=== PATIENT | male | born 1960 | race Caucasian/White ===

== ENCOUNTER 2018-03-01 23:39 | Emergency (ER) | payer OTHER ==
[2018-03-01 23:56] VITALS: BP 111/79; TEMP 98.2; BMI 36.4
[2018-03-02] MEDS ORDERED: BOOSTRIX IM ONE (00:09)
[2018-03-02] MEDS ORDERED: KEFLEX PO STA (00:09)
--- NOTE | 2018-03-02 00:14 | ED.PDOC ---
General ED Provider: Dr. BING COSTELLO Chief Complaint: Bite Stated Complaint: Dog had something in his mouth when he went to get it he was bit on left 5th finger by a mouse that the dog was holdin. He staets that he cleansed area with soap/water. Tetnus is not up to date. Time Seen by Physician: 00:14 Mode of Arrival: Walk-In Information Source: Patient Exam Limitations: No limitations Primary Care Provider: SUZAN OSULLIVAN Nursing and Triage Documentation Reviewed and Agree: Yes Reviewed sepsis parameters & appropriate labs ordered?: No System Inflammatory Response Syndrome: Not Applicable Sepsis Protocol: For patient's 13 years and over: Temp is 96.8 and below OR 101 and greater Pulse >90 BPM Resp >20/minute Acutely Altered Mental Status Are patient's symptoms suggestive of a new infection, such as: -Pneumonia -Skin, Soft Tissue -Endocarditis -UTI -Bone, Joint Infection -Implantable Device -Acute Abdominal Infection -Wound Infection -Meningitis -Blood Stream Catheter Infection -Unknown System Inflammatory Response Syndrome: Not Applicable Skin Complaint Exam - Laceration/Abrasion/Hand Complaint/Exam Location of Injury: Left, Digit #5 Mechanism of Injury: Laceration, Abrasion Onset/Duration: just prior to arrival. Symptoms Are: Still present Initial Severity: Severe Current Severity: Mild Aggravating: None Associated Signs and Symptoms: Denies: Fever, Chills, Erythema, Numbness, Tingling Related History: Reports: Right hand dominant Hand Picture: 1 - Abrasion measuring 0.5 cm Differential Diagnoses: Abrasion Review of Systems - Review Of Systems Constitutional: Reports: No symptoms Eyes: Reports: No symptoms Ears, Nose, Mouth, Throat: Reports: No symptoms Respiratory: Reports: No symptoms Cardiac: Reports: No symptoms GI: Reports: No symptoms : Reports: No symptoms Musculoskeletal: Reports: Joint pain Skin: Reports: Bruising Neurological: Reports: No symptoms Endocrine: Reports: No symptoms Hematologic/Lymphatic: Reports: No symptoms All Other Systems: Reviewed and Negative Past Medical History - Past Medical History Previously Healthy: Yes Endocrine: Reports: None Cardiovascular: Reports: Hypertension Respiratory: Reports: None Hematological: Reports: None Gastrointestinal: Reports: None Genitourinary: Reports: None Neuro/Psych: Reports: None Musculoskeletal: Reports: None Cancer: Reports: None - Surgical History General Surgical History: Reports: None - Family History Family History: Reports: None - Social History Smoking Status: Never smoker Hx Substance Use: No Alcohol Screening: Occasionally - Immunizations Tetanus Shot up to Date: No Physical Exam - Physical Exam Appearance: Ill-appearing Ill-appearing: Mild Pain Distress: Mild Eyes: STELLA, EOMI, Conjunctiva clear ENT: Ears normal, Nose normal, Oropharynx normal Respiratory: Airway patent, Breath sounds clear, Breath sounds equal, Respirations nonlabored Cardiovascular: RRR, Pulses normal, No rub, No murmur GI/: Soft, Nontender, No masses, Bowel sounds normal, No Organomegaly Musculoskeletal: Normal strength, ROM intact, No edema, No calf tenderness Skin: Warm, Dry, Normal color Neurological: Sensation intact, Motor intact, Reflexes intact, Cranial nerves intact, Alert, Oriented Psychiatric: Affect appropriate, Mood appropriate Critical Care Note - Critical Care Note Total Time (mins): 0 Course - Course Orders, Labs, Meds: Orders Category Date Time Status Cephalexin [Keflex] MEDS 03/02/18 00:09 Discontinued 500 mg PO ONCE STA Diphth,Pertuss(Acell),Tet Vac [Boostrix] MEDS 03/02/18 00:09 Discontinued 0.5 ml IM .ONCE ONE Medications Discontinued Medications Generic Name Dose Route Start Last Admin Trade Name Freq PRN Reason Stop Dose Admin Cephalexin 500 mg 03/02/18 00:09 03/02/18 00:15 Keflex PO 03/02/18 00:10 500 mg ONCE STA Administration Diphtheria/Pertussis/Tetanus Vacc 0.5 ml 03/02/18 00:09 03/02/18 00:15 Boostrix IM 03/02/18 00:10 0.5 ml .ONCE ONE Administration Vital Signs: Temp Pulse Resp BP Pulse Ox 03/01/18 23:49 98.2 F 88 20 111/79 96 Departure - Departure Time of Disposition: 00:14 Disposition: HOME SELF-CARE Discharge Problem: Animal bite of finger Qualifiers: Encounter type: initial encounter Qualified Code(s): S61.259A - Open bite of unspecified finger without damage to nail, initial encounter Instructions: Animal Bite (ED) Condition: Stable Pt referred to PMD for follow-up: Yes IPMP verified?: No Additional Instructions: Take antibiotics as prescribed, take home pain medications as needed for pain. Follow up with PCP in 3 days to check the ould Keep wound clean and cover with dressing. Prescriptions: Cephalexin [Keflex] 500 mg PO Q8HR #30 capsule Allergies/Adverse Reactions: Allergies No Known Allergies Allergy (Unverified 03/01/18 23:55) Home Medications: Ambulatory Orders Gabapentin 300 mg PO DIRECTED 03/01/18 Ibuprofen 800 mg PO DAILY PRN 03/01/18 Lisinopril [Zestril] 5 mg PO DAILY 03/01/18 Zolpidem Tartrate [Ambien Cr] 12.5 mg PO BEDTIME 03/01/18 Cephalexin [Keflex] 500 mg PO Q8HR #30 capsule 03/02/18 Disposition Discussed With: Patient
== END 2018-03-02 00:35 | disposition home or self-care (01) ==
LOC: ED 23:39
DX: S61.257A Open bite of left little finger without damage to nail, initial encounter (principal); W53.01XA Bitten by mouse, initial encounter
CPT/HCPCS: 90471; 90715; 99282